=== PATIENT | male | born 1995 | race Caucasian/White ===

== ENCOUNTER 2016-11-14 20:33 | Emergency (ER) | payer BC ==
[2016-11-14] MEDS ORDERED: Ketorolac 60 MG/2 ML SDV IM ONE (21:08)
[2016-11-14] MEDS ORDERED: Sodium Chloride 0.9% 1,000 ML IV ONE (22:02)
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
[2016-11-14] MEDS ORDERED: HYDROmorphone 1 MG/ML Syringe IVPUSH ONE (22:03)
[2016-11-14 23:16] VITALS: BP 137/77
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
== END 2016-11-14 23:05 | disposition home or self-care (01) ==
LOC: MW.ED 20:33
DX: T14.8 Other injury of unspecified body region (principal); M54.5 Low back pain; M54.2 Cervicalgia; V89.2XXA Person injured in unspecified motor-vehicle accident, traffic, initial encounter
CPT/HCPCS: 72040; 72070; 72100; 72220; 96361; 96374; 96375; 99283; J1170; J1885; J7040